=== PATIENT | female | born 1935 | race Caucasian/White ===

== ENCOUNTER 2020-02-10 05:49 | Inpatient (IN) | payer MEDICARE, OTHER ==
[~2020-02-10 05:49] MED LIST: BENAZEPRIL-HCT1 EAC1 PO; CARDIZEM CD240 MG PO; COUMADIN5 MG PO; CRESTOR10 MG PO; DEMADEX20 MG PO; DIGITEK125 MCG PO; DIGOX125 MCG PO; LASIX20 MG PO; SILVASORB44.4 ML TOP; TOPROL XL 50 MG50 MG PO; WARFARIN SODIUM2 MG PO
[2020-02-10 07:09] LABS: BASOPHIL 0.1 % (0-2); EOSINOPHIL 0.1 % (0-7); HCT 49.4 % (37.0-47.0); HGB 15.6 g/dl (12.5-16.0); LYMPHOCYTE 8.5 % (15-48); MCH 31.3 pg (25.0-31.0); MCHC 31.6 g/dL (32.0-36.0); MCV 99.2 fL (78.0-100.0); MONOCYTE 3.7 % (0-12); NEUTROPHIL 87.1 % (41-80); NRBC 0; PLT 303 K/uL (150-400); RBC 4.98 M/uL (4.20-5.40); RDW 15.5 % (11.5-14.0); WBC 14.7 K/uL (4.0-10.5)
[2020-02-10 07:42] LABS: BILIRUBIN NEGATIVE (NEGATIVE); BLOOD NEGATIVE Ery/uL (NEGATIVE); CLARITY CLEAR (CLEAR); COLOR YELLOW (YELLOW); GLUCOSE (U) NORMAL (NORMAL); LEUKOCYTES NEGATIVE Leu/uL (NEGATIVE); NITRITE NEGATIVE (NEGATIVE); PROTEIN NEGATIVE (NEGATIVE); UROBILINOGEN 0.2 mg/dL (0.2-1.0); pH 5.5 (5.0-9.0)
[2020-02-10 07:45] LABS: INR 1.94 (0.9-1.2); PROTHROMBIN TIME 21.1 SECONDS (11.4-13.6)
[2020-02-10 07:51] LABS: ALBUMIN 2.8 g/dL (3.4-5.0); BILIRUBIN - TOTAL 0.8 mg/dL (0.2-1.0); BUN/CREAT RATIO (CALC) 33.3 RATIO; CREATININE 1.17 mg/dL (0.51-0.95); GLOBULIN (CALCULATION) 4.8 g/dL; POTASSIUM 4.8 mmol/L (3.5-5.1); TOTAL PROTEIN 7.6 g/dL (6.4-8.2)
[2020-02-10] MEDS ORDERED: BENTYL10 MG PO (09:28)
[2020-02-10] MEDS ORDERED: ZOFRAN4 M1 PO (09:28)
[2020-02-10 14:51] LABS: BILIRUBIN NEGATIVE (NEGATIVE); BLOOD NEGATIVE Ery/uL (NEGATIVE); CLARITY CLEAR (CLEAR); COLOR YELLOW (YELLOW); GLUCOSE (U) NORMAL (NORMAL); LEUKOCYTES NEGATIVE Leu/uL (NEGATIVE); NITRITE NEGATIVE (NEGATIVE); PROTEIN TRACE (LOW) mg/dL (NEGATIVE); SPECIFIC GRAVITY 1.025 (1.001-1.030); UROBILINOGEN 0.2 mg/dL (0.2-1.0)
[2020-02-10] MEDS ORDERED: AUGMENTIN 875-1 EACH PO (15:40)
[2020-02-10] MEDS ORDERED: K-DUR20 MEQ PO (15:42)
[2020-02-10] MEDS ORDERED: OXAZEPAM10 MG PO (15:44)
[2020-02-10] MEDS ORDERED: VALSARTAN80 MG PO (15:45)
[2020-02-10 16:14] LABS: BASOPHIL 0.2 % (0-2); EOSINOPHIL 0 % (0-7); HCT 47.7 % (37.0-47.0); HGB 14.4 g/dl (12.5-16.0); LYMPHOCYTE 3.7 % (15-48); MCH 31.5 pg (25.0-31.0); MCHC 30.2 g/dL (32.0-36.0); MCV 104.4 fL (78.0-100.0); MONOCYTE 3.1 % (0-12); MPV 9.8 fL (6.0-9.5); NEUTROPHIL 92.1 % (41-80); NRBC 0; PLT 303 K/uL (150-400); RBC 4.57 M/uL (4.20-5.40); RDW 15.8 % (11.5-14.0)
[2020-02-10 16:16] LABS: WBC 31.3 K/uL (4.0-10.5)
[2020-02-10 16:23] LABS: INR 2.05 (0.9-1.2); PTT 40.5 SECONDS (22.2-34.7)
[2020-02-10 17:09] LABS: ALBUMIN 2.7 g/dL (3.4-5.0); BILIRUBIN - TOTAL 1.1 mg/dL (0.2-1.0); BUN/CREAT RATIO (CALC) 28.6 RATIO; CREATININE 1.4 mg/dL (0.51-0.95); GLOBULIN (CALCULATION) 4.2 g/dL; POTASSIUM 5.3 mmol/L (3.5-5.1); TOTAL PROTEIN 6.9 g/dL (6.4-8.2)
[2020-02-11 06:26] LABS: BASOPHIL 0.1 % (0-2); EOSINOPHIL 0 % (0-7); HCT 38.2 % (37.0-47.0); HGB 11.7 g/dl (12.5-16.0); LYMPHOCYTE 3.4 % (15-48); MCH 31.3 pg (25.0-31.0); MCHC 30.6 g/dL (32.0-36.0); MCV 102.1 fL (78.0-100.0); MONOCYTE 1.8 % (0-12); MPV 10.2 fL (6.0-9.5); NEUTROPHIL 93.9 % (41-80); PLT 200 K/uL (150-400); RBC 3.74 M/uL (4.20-5.40); RDW 15.5 % (11.5-14.0); WBC 25.6 K/uL (4.0-10.5)
[2020-02-11 06:48] LABS: ALBUMIN 2.3 g/dL (3.4-5.0); BILIRUBIN - TOTAL 0.7 mg/dL (0.2-1.0); BUN/CREAT RATIO (CALC) 28.6 RATIO; CREATININE 1.54 mg/dL (0.51-0.95); MAGNESIUM 1.9 mg/dL (1.8-2.4); PHOSPHORUS 5.4 mg/dL (2.6-4.7); POTASSIUM 5.3 mmol/L (3.5-5.1); TOTAL PROTEIN 6.3 g/dL (6.4-8.2)
[2020-02-11 07:22] LABS: BAND 1 % (0-10); LYMPHOCYTE(M) 3 % (15-48); METAMYELOCYTE 1; TOTAL CELL COUNT 100
[2020-02-11 07:23] LABS: PLATELET ESTIMATE NORMAL; PLATELET MORPHOLOGY NORMAL
[2020-02-11 07:26] LABS: MONOCYTE(M) 0 % (0-12); NEUTROPHILS(M) 95 % (41-80)
--- NOTE | 2020-02-11 13:08 | NUR ---
PT LIVES ALONE BUT SON HAS BEEN STAYING WITH HER AFTER HER RECENT HOSPITALIZATION; PLEASE ADVISE OF ANY DISCHARGE NEEDS
[2020-02-12 04:27] LABS: BASOPHIL 0.3 % (0-2); EOSINOPHIL 0 % (0-7); HCT 42.3 % (37.0-47.0); HGB 12.8 g/dl (12.5-16.0); LYMPHOCYTE 4.6 % (15-48); MCHC 30.3 g/dL (32.0-36.0); MCV 102.4 fL (78.0-100.0); MONOCYTE 4.6 % (0-12); MPV 10.1 fL (6.0-9.5); NEUTROPHIL 87.9 % (41-80); NRBC 0.2; PLT 188 K/uL (150-400); RBC 4.13 M/uL (4.20-5.40); RDW 15.8 % (11.5-14.0)
[2020-02-12 04:28] LABS: WBC 20.6 K/uL (4.0-10.5)
[2020-02-12 05:04] LABS: PROTHROMBIN TIME 49.5 SECONDS (11.4-13.6)
[2020-02-12 05:05] LABS: INR 5.74 (0.9-1.2)
[2020-02-12 05:47] LABS: ALBUMIN 2.2 g/dL (3.4-5.0); BILIRUBIN - TOTAL 0.8 mg/dL (0.2-1.0); BUN/CREAT RATIO (CALC) 27.1 RATIO; CREATININE 1.55 mg/dL (0.51-0.95); GLOBULIN (CALCULATION) 4.1 g/dL; MAGNESIUM 1.7 mg/dL (1.8-2.4); PHOSPHORUS 5.2 mg/dL (2.6-4.7); POTASSIUM 4.7 mmol/L (3.5-5.1); TOTAL PROTEIN 6.3 g/dL (6.4-8.2)
[2020-02-12 06:02] LABS: PRO-BNP > 35000 pg/mL (<450)
--- NOTE | 2020-02-12 19:56 | NUR ---
PATIENT HEART RATE INCREASED TO 150'S, ATRIAL FIB WITH RVR WHEN PATIENT TURNED. RETURNED TO FORMER POSITION, HEART RATE CONTINUED TO BE ELEVATED. DR. CASTRO NOTIFIED, DIG ORDERED AND GIVEN.
[2020-02-13 05:14] LABS: BASOPHIL 0.2 % (0-2); EOSINOPHIL 0 % (0-7); HCT 40.5 % (37.0-47.0); LYMPHOCYTE 4.1 % (15-48); MCH 31.6 pg (25.0-31.0); MCHC 32.1 g/dL (32.0-36.0); MCV 98.5 fL (78.0-100.0); MONOCYTE 4.8 % (0-12); MPV 10.2 fL (6.0-9.5); PLT 165 K/uL (150-400); RBC 4.11 M/uL (4.20-5.40); RDW 15.8 % (11.5-14.0); WBC 15.3 K/uL (4.0-10.5)
[2020-02-13 06:21] LABS: MONOCYTE(M) 6 % (0-12); NEUTROPHILS(M) 94 % (41-80); TOTAL CELL COUNT 100
[2020-02-13 06:22] LABS: NRBC 1; PLATELET ESTIMATE NORMAL; PLATELET MORPHOLOGY NORMAL
[2020-02-13 06:29] LABS: PTT 45.9 SECONDS (22.2-34.7)
[2020-02-13 06:30] LABS: PROTHROMBIN TIME 56.3 SECONDS (11.4-13.6)
[2020-02-13 06:40] LABS: BILIRUBIN - TOTAL 0.7 mg/dL (0.2-1.0); BUN/CREAT RATIO (CALC) 28.2 RATIO; CREATININE 1.49 mg/dL (0.51-0.95); GLOBULIN (CALCULATION) 3.6 g/dL; MAGNESIUM 1.6 mg/dL (1.8-2.4); PHOSPHORUS 3.6 mg/dL (2.6-4.7); POTASSIUM 4.4 mmol/L (3.5-5.1); TOTAL PROTEIN 5.6 g/dL (6.4-8.2)
[2020-02-13 06:48] LABS: PRO-BNP > 35000 pg/mL (<450)
[2020-02-13 07:40] LABS: INR 6.76 (0.9-1.2)
[2020-02-13 07:57] LABS: D-DIMER > 20.00 ug/mLFEU (0.00-0.41)
[2020-02-14 06:51] LABS: BASOPHIL 0.1 % (0-2); EOSINOPHIL 0 % (0-7); HCT 43.9 % (37.0-47.0); HGB 14.8 g/dl (12.5-16.0); LYMPHOCYTE 2.4 % (15-48); MCH 31.8 pg (25.0-31.0); MCHC 33.7 g/dL (32.0-36.0); MCV 94.2 fL (78.0-100.0); MONOCYTE 2.8 % (0-12); MPV 9.8 fL (6.0-9.5); NRBC 0.1; PLT 199 K/uL (150-400); RBC 4.66 M/uL (4.20-5.40); RDW 15.9 % (11.5-14.0); WBC 14.4 K/uL (4.0-10.5)
[2020-02-14 06:52] LABS: NEUTROPHIL 94.1 % (41-80)
[2020-02-14 07:04] LABS: INR 2.28 (0.9-1.2); PROTHROMBIN TIME 23.9 SECONDS (11.4-13.6)
[2020-02-14 07:20] LABS: BUN/CREAT RATIO (CALC) 31.3 RATIO; CREATININE 1.31 mg/dL (0.51-0.95); GLOBULIN (CALCULATION) 3.2 g/dL; MAGNESIUM 1.6 mg/dL (1.8-2.4); PHOSPHORUS 3.4 mg/dL (2.6-4.7); POTASSIUM 4.3 mmol/L (3.5-5.1); TOTAL PROTEIN 5.2 g/dL (6.4-8.2)
[2020-02-14 07:23] LABS: PRO-BNP > 35000 pg/mL (<450)
[2020-02-15 06:02] LABS: BASOPHIL 0.1 % (0-2); EOSINOPHIL 0 % (0-7); HCT 44.4 % (37.0-47.0); HGB 14.4 g/dl (12.5-16.0); LYMPHOCYTE 3.9 % (15-48); MCH 30.9 pg (25.0-31.0); MCHC 32.4 g/dL (32.0-36.0); MCV 95.3 fL (78.0-100.0); MONOCYTE 4.5 % (0-12); MPV 9.5 fL (6.0-9.5); NEUTROPHIL 90.9 % (41-80); NRBC 0.2; PLT 204 K/uL (150-400); RBC 4.66 M/uL (4.20-5.40); RDW 15.9 % (11.5-14.0); WBC 14.5 K/uL (4.0-10.5)
[2020-02-15 06:12] LABS: INR 1.62 (0.9-1.2); PROTHROMBIN TIME 18.3 SECONDS (11.4-13.6)
[2020-02-15 06:26] LABS: ALBUMIN 1.8 g/dL (3.4-5.0); BILIRUBIN - TOTAL 1.1 mg/dL (0.2-1.0); BUN/CREAT RATIO (CALC) 31.5 RATIO; CREATININE 1.3 mg/dL (0.51-0.95); GLOBULIN (CALCULATION) 3.7 g/dL; POTASSIUM 4.2 mmol/L (3.5-5.1); TOTAL PROTEIN 5.5 g/dL (6.4-8.2)
--- NOTE | 2020-02-15 09:00 | NUR ---
0900: DR. CASTRO NOTIFIED THAT UPON AM ASSESSMENT PT RR HIGH 30'S, SATS 88, HR 130 AFIB, AUDIBLE RALES/RONCHI FROM BEDSIDE, APPEARS IN RESP. DISTRESS. DR. CASTRO CAME TO BEDSIDE & SPOKE W/ SON ABOUT PROGNOSIS. SON WANTS TO MAKE PT MOSTLY COMFORT MEASURES & KEEP HER COMFORTABLE W/ MORPHINE & AGREES TO BUMEX EVEN IF BP DROPS, BUT DOES NOT WANT TO TURN OFF PRESSORS OR D/C ANY MEDS. WILL PROCEED W/ BUMEX & KEEP ALL OTHER MEDS/PLAN THE SAME.
--- NOTE | 2020-02-16 10:21 | NUR ---
PATIENTS FAMILY MEMBERS AT BEDSIDE, PATIENT IS COMFORT MEASURES, OKAY TO TURN OFF LEVOPHED AND DOBUTAMINE GTT AT THIS TIME PER PATIENTS SON. NOTIFIED. PATIENT APPEARS TO BE RESTING WITHOUT DISTRESS
== END 2020-02-16 13:55 | disposition expired | DRG 871 ==
LOC: FER 05:49 → FICU 11:41
PROVIDERS: Emergency Medicine; ADMIT Internal Medicine
PROC: 3E033XZ Introduction of Vasopressor into Peripheral Vein, Percutaneous Approach (ICD-10-PCS; 2020-02-10)
PROC: B24BZZZ Ultrasonography of Heart with Aorta (ICD-10-PCS; principal; 2020-02-16)
DX: A41.9 Sepsis, unspecified organism (principal); R65.21 Severe sepsis with septic shock; K55.059 Acute (reversible) ischemia of intestine, part and extent unspecified; G93.41 Metabolic encephalopathy; J18.9 Pneumonia, unspecified organism; E87.2 Acidosis; I13.0 Hypertensive heart and chronic kidney disease with heart failure and stage 1 through stage 4 chronic kidney disease, or unspecified chronic kidney disease; N17.9 Acute kidney failure, unspecified; R57.0 Cardiogenic shock; I50.810 Right heart failure, unspecified; Z66 Do not resuscitate; Z51.5 Encounter for palliative care; I48.0 Paroxysmal atrial fibrillation; Z88.6 Allergy status to analgesic agent; Z88.8 Allergy status to other drugs, medicaments and biological substances; Z20.822 Contact with and (suspected) exposure to COVID-19; Z79.01 Long term (current) use of anticoagulants; I27.20 Pulmonary hypertension, unspecified; N18.9 Chronic kidney disease, unspecified; L89.152 Pressure ulcer of sacral region, stage 2; L89.892 Pressure ulcer of other site, stage 2; L89.890 Pressure ulcer of other site, unstageable
CPT/HCPCS: 36415; 71045; 71250; 74022; 80053; 80162; 80202; 81003; 82607; 83605; 83615; 83735; 83880; 84100; 84145; 84484; 85025; 85379; 85610; 85730; 87040; 93005; C9113; G0463; J0282; J1160; J1250; J1650; J1940; J1956; J2270; J2405; J2543; J3370; J3430; J7030; J7050; J7060; U0002